=== PATIENT | female | born 1995 | race Caucasian/White ===

== ENCOUNTER 2020-07-04 14:34 | Emergency (ER) | payer SELFPAY ==
[2020-07-04] MEDS ORDERED: Meclizine HCl 25 MG TAB ONE ×2 (15:01→15:06)
[2020-07-04 16:08] LABS: Pregu Control Background? CLEAR/WHITE (CLR/WHITE); Pregu Control Bar Appear? YES (CONTROL BAR); Specific Gravity 1.023 (1.002-1.036)
[2020-07-04 16:09] LABS: Pregnancy Test - Urine (BHCG) Negative (Negative)
== END 2020-07-04 16:22 | disposition home or self-care (01) ==
LOC: MADERS 14:34
DX: H65.00 Acute serous otitis media, unspecified ear (principal); R42 Dizziness and giddiness
CPT/HCPCS: 81025; 99284

== ENCOUNTER 2024-11-12 00:26 | Emergency (ER) | payer SELFPAY ==
[2024-11-12] MEDS ORDERED: Sodium Chloride 0.9% 1,000 ML ONE ×2 (00:30→00:40)
[2024-11-12] MEDS ORDERED: Ondansetron PF 4 MG/2 ML Vial ONE (00:34)
[2024-11-12] MEDS ORDERED: Morphine 4 MG/ML VIAL ONE ×2 (00:34→03:14)
[2024-11-12] MEDS ORDERED: Vancomycin HCl 500 MG VIAL ONE (00:41)
[2024-11-12] MEDS ORDERED: Acetaminophen 500 MG TAB ONE (00:41)
[2024-11-12] MEDS ORDERED: Clindamycin/D5W 900 mg/50 ml Premix Bag ONE (00:41)
[2024-11-12] MEDS ORDERED: Vancomycin 1 GM VIAL ONE (00:41)
[2024-11-12] MEDS ORDERED: Sodium Chloride 0.9% 100 ML ONE ×2 (00:42→01:04)
[2024-11-12] MEDS ORDERED: Sodium Chloride 0.9% 250 ML 250 ML ONE (00:42)
[2024-11-12 00:59] LABS: Band 2 % (5-11); Hematocrit 37.8 % (36.0-47.0); Hemoglobin 12.2 g/dL (12.0-16.0); Lymphocytes 2 % (21-51); MDiff Complete? YES; Mean Corpuscular HGB CONC 32.4 g/dL (32.0-36.0); Mean Corpuscular Hemoglobin 29.5 pg (27.0-31.0); Mean Corpuscular Volume 91.1 fl (78.0-98.0); Mean Platelet Volume 7.7 fL (7.4-10.4); Neutrophil 96 % (42-75); Platelet Count 220 10x3/uL (130-400); Prothrombin Time 12.9 sec (12.0-14.7); RBC Distribution Width 12.2 % (11.5-14.5); Red Blood Cell (RBC) Count 4.15 mill/uL (4.20-5.40); White Blood Cell (WBC) Count 19.4 10x3/uL (4.8-10.8)
[2024-11-12 01:00] LABS: PTT 35.4 sec (22.9-36.1)
[2024-11-12] MEDS ORDERED: Gentamicin 80 MG/2 ML VIAL ONE (01:04)
[2024-11-12 01:10] LABS: ALT (SGPT) 16 U/L (8-55); AST (SGOT) 23 U/L (5-34); Albumin 2.6 g/dL (3.5-5.0); Alkaline Phosphatase 96 U/L (40-110); Anion Gap 17 mmol/L (10-20); BUN (Urea Nitrogen) 11 mg/dL (7.0-18.7); Bilirubin, Total 0.4 mg/dL (0.2-1.2); Calc. Creatinine Clearance 0 mL/min (70-130); Calcium 8.1 mg/dL (7.8-10.44); Carbon Dioxide 17 mmol/L (22-29); Chloride 105 mmol/L (98-107); Estimated GFR 99; Globulin 4.1 g/dL (2.4-3.5); Glucose 129 mg/dL (70-105); Lipase 16 U/L (8-78); Potassium 3.3 mmol/L (3.5-5.1); Protein, Total 6.7 g/dL (6.0-8.3); Sodium 136 mmol/L (136-145)
[2024-11-12 02:22] LABS: Clarity Cloudy (Clear); Specific Gravity, Urine 1.015 (1.005-1.030)
[2024-11-12 02:23] LABS: Leukocyte Large (Negative); Nitrite Positive (Negative); Protein, Urine (Dipstick) > or equal to 300 mg/dL (Neg-Trace)
[2024-11-12 02:24] LABS: Bilirubin Small (Negative); Blood, Urine Large (Negative); Glucose, Urine (Dipstick) Negative (Negative); Ketone, Urine Trace mg/dL (Negative); Urobilinogen 0.2 mg/dL (Less than 2)
[2024-11-12 02:25] LABS: Bacteria/HPF 1+ HPF (None Seen); CAUTI Indications for Culture Pelvic or flank pain; RBC/HPF 21-50 HPF (0-3); WBC/HPF Greater than 50 HPF (0-3)
[2024-11-12 02:26] LABS: Urine Culture Reflex Yes Yes
[2024-11-12] MEDS ORDERED: Morphine 2 MG/ML VIAL ONE (03:14)
[2024-11-12] MEDS ORDERED: HYDROmorphone 0.5 MG/0.5 ML SYRINGE ONE (03:23)
[2024-11-12 03:42] LABS: Bilirubin Negative (Negative); Blood, Urine Small (Negative); Clarity Slightly Cloudy (Clear); Glucose, Urine (Dipstick) Negative (Negative); Ketone, Urine Negative (Negative); Leukocyte Negative (Negative); Nitrite Negative (Negative); Protein, Urine (Dipstick) 30 mg/dL (Neg-Trace); Urobilinogen 0.2 mg/dL (Less than 2)
[2024-11-12 03:47] LABS: Bacteria/HPF Rare-Few HPF (None Seen); CAUTI Indications for Culture Pelvic or flank pain; Renal Epithelial 0-3 HPF (None Seen)
[2024-11-12 03:48] LABS: Urine Culture Reflex No No
[2024-11-12] MEDS ORDERED: Sodium Chloride 0.9% 100 ML BAG ONE (09:00)
[2024-11-12] MEDS ORDERED: Iopamidol 370 76% 100 ML VIAL ONE (09:00)
== END 2024-11-12 03:47 | disposition short-term general hospital (02) ==
LOC: MADERS 00:26
DX: O85 Puerperal sepsis (principal); O99.893 Other specified diseases and conditions complicating puerperium; R10.30 Lower abdominal pain, unspecified
CPT/HCPCS: 36415; 51701; 71275; 74177; 80053; 81001; 83605; 83690; 85025; 85610; 85730; 87040; 87077; 87086; 87149; 87186; 93005; 96365; 96366; 96368; 96375; 96376; J1171; J1580; J2270; J2272; J2405; J3370; J3490; J7030; J7050; Q9967